=== PATIENT | female | born 2000 | race Caucasian/White ===

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

== ENCOUNTER 2022-04-04 13:38 | Outpatient (CLI) | payer BC, SELFPAY ==
--- NOTE | ~2022-04-04 | XR_ITS ---
EXAMINATION: XR wrist LT min 3V DATE: 04/04/2022 14:06 INDICATION: Left wrist pain TECHNIQUE: Posteroanterior, ulnar deviation, oblique, and lateral views of the left wrist were obtain ed. COMPARISON: 02/19/2013 FINDINGS: Bone alignment is normal. There is no acute fracture. 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 IMPRESSION: 1. No acute osseous abnormality. Reviewed, dictated and finalized at location F.
--- NOTE | ~2022-04-04 | XR_ITS ---
EXAMINATION: XR ankle LT min 3V DATE: 04/04/2022 14:05 INDICATION: Left ankle pain TECHNIQUE: Anteroposterior, lateral, mortise, and additional oblique view of the ankle were obtained. COMPARISON: None FINDINGS: Bone alignment is normal. There is no fracture or osteochondral lesion. The soft tissues ar e unremarkable. IMPRESSION: 1. No acute osseous abnormality. Reviewed, dictated and finalized at location F.
== END 2022-04-04 13:39 | disposition home or self-care (01) ==
LOC: CHSIMG 13:41
PROVIDERS: PCP Internal Medicine; Visit Provider Family Medicine
DX: M25.572 Pain in left ankle and joints of left foot (principal); M25.532 Pain in left wrist
CPT/HCPCS: 73110; 73610